=== PATIENT | male | born 1955 | race Caucasian/White ===

== ENCOUNTER 2016-11-04 11:02 | Emergency (ER) | payer BC ==
[2010-02-18 02:15] VITALS: BMI 30.1
== END 2016-11-04 12:50 | disposition home or self-care (01) ==
LOC: D.ER 11:02
DX: S93.402A Sprain of unspecified ligament of left ankle, initial encounter (principal); X58.XXXA Exposure to other specified factors, initial encounter; Y93.89 Activity, other specified; Y92.89 Other specified places as the place of occurrence of the external cause; M79.662 Pain in left lower leg; Z79.01 Long term (current) use of anticoagulants

== ENCOUNTER 2017-01-12 07:56 | Day surgery (SDC) | payer BC ==
[~2017-01-12 07:56] MED LIST: COUMADIN5 MG PO; COUMADIN7.5 MG PO; LIPITOR40 MG PO; VITAMIN D2000 UNIT PO
[2017-01-12 08:52] LABS: BASOPHILS 0.5 % (0-2); EOSINOPHILS 1.4 % (0-7); HEMATOCRIT 45.8 % (42.0-54.0); HEMOGLOBIN 15.3 g/dL (13.5-17.5); IMMATURE GRANULOCYTES 0.2 % (0-5); LYMPHOCYTES 36.3 % (15-50); MCH 30.2 pg (26.0-34.0); MCHC 33.4 g/dL (31.0-37.0); MCV 90.5 fL (80.0-100.0); MEAN PLATELET VOLUME 9.9 fL (7.4-10.4); MONOCYTES 7.2 % (2-11); NEUTROPHILS 54.4 % (40-80); RBC 5.06 10x6/uL (4.20-6.10); RDW 13.7 % (11.5-14.5); WBC 4.3 10x3/uL (4.8-10.8)
[2017-01-12 08:58] LABS: PLATELET COUNT 203 10x3/uL (130-400)
[2017-01-12 09:02] VITALS: BP 112/69; BMI 34.4
[2017-01-12 09:13] LABS: APTT 33.5 SECONDS (22.8-39.4)
[2017-01-12 09:29] LABS: ANION GAP 8.4 mmol/L (8-16); CALCIUM 9.3 mg/dL (8.5-10.1); CARBON DIOXIDE 33.7 mmol/L (21.0-32.0); CREATININE - SERUM 1.1 mg/dL (0.6-1.3); POTASSIUM - SERUM 4.1 mmol/L (3.5-5.1)
[2017-01-12 09:34] LABS: INR 1.24 (0.85-1.17); PROTIME 15.5 SECONDS (11.6-15.0)
[2017-01-12] MEDS ORDERED: HYDROCODONE-APA1 TAB PO (12:16)
--- NOTE | 2017-01-12 15:01 | NUR ---
1445--IV DC'D, PT UP TO DRESS. FRANKLIN DARNELL 5651--DISCHARGE INSTRUCTIONS GIVEN, PT VERBALIZES UNDERSTANDING. PT OFF UNIT VIA WC. FRANKLIN DARNELL
--- NOTE | 2017-01-13 13:11 | OP ---
PATIENT NAME: RHONDA NEGRON MEDICAL RECORD: [id number] :59 LOCATION:[facility] ADMISSION DATE: SURGEON: RASHEED VEE MD DATE OF OPERATION: 01/12/2017 PREOPERATIVE DIAGNOSES: 1. Lipoma of the right upper back. 2. Bilateral posterior auricular sebaceous cyst. 3. Chronic Coumadin use. 4. Gastroesophageal reflux disease. 5. Tobacco dependence syndrome. 6. Hypercholesterolemia. 7. History of deep venous thrombosis/pulmonary embolism. POSTOPERATIVE DIAGNOSES: 1. Lipoma of the right upper back. 2. Bilateral posterior auricular sebaceous cyst. 3. Chronic Coumadin use. 4. Gastroesophageal reflux disease. 5. Tobacco dependence syndrome. 6. Hypercholesterolemia. 7. History of deep venous thrombosis/pulmonary embolism. PROCEDURES: 1. Excision of 5-cm posterior right upper back lipoma. 2. Excision of bilateral 1-cm posterior auricular sebaceous cyst. SURGEON: Rasheed Vee MD REPORT OF PROCEDURE: The patient's back and posterior head and neck region were all prepped and draped in sterile fashion. A 5-cm longitudinal incision was made overlying the right upper back lipoma. This was done just medial to the scapula. Electrocautery was used to dissect through the subcutaneous tissues. We went through one layer of musculature until we encountered the patient's lipoma. The lipoma was discoid in shape and about 5 cm in greatest diameter. This was completely excised and appeared to be lying right over top of the back musculature. Once this was completely excised, it was sent off for permanent specimen. Any bleeding was then treated with electrocautery. We then irrigated out the wound thoroughly with normal saline and reapproximated the muscular tissue with interrupted 3-0 Vicryl. The Madhavi's was closed with interrupted 3-0 Vicryl and the skin was closed with running subcutaneous 5-0 Monocryl. A 10 mL of 0.25% Marcaine with epinephrine was infused into the surrounding tissues. We then approached the right posterior auricular mass. An ovoid incision was made around the mass and this was completely excised. It was noted to be a small sebaceous cyst. The subcutaneous tissues were irrigated out and treated with electrocautery. We then reapproximated the skin incision with a horizontal mattress 5-0 Monocryl. The left posterior auricular mass was approached in a similar fashion. An ovoid incision was made around the lesion, which was about 1 cm in size. The lesion was completely excised. The subcutaneous tissues were irrigated out and then infused with a total of 2 mL of 0.25% Marcaine with epi. The skin was then closed with horizontal mattress 5-0 Monocryl. The wounds were all dressed appropriately. COMPLICATIONS: None. OPERATIVE REPORT [id number] RHONDA NEGRON CONDITION: Stable. ANESTHESIA: General endotracheal and local. BLOOD LOSS: Minimal. TRANSINT:[id number] Voice Confirmation ID: [id number] DOCUMENT ID: [id number] RASHEED VEE MD at 1311 CC: DEMARCUS LAMB MD [id number] DICTATION DATE: 01/12/17 1221 [employer]: 01/12/17 1238 [facility] 01/12/17 [facility] [address] [place] [address]
== END 2017-01-12 14:55 | disposition home or self-care (01) ==
LOC: D.OPS 07:56 → D.PAN 08:30 → D.OPS 10:00 → D.PAN 10:30 → D.OPS 14:55
PROVIDERS: Surgery
DX: D17.1 Benign lipomatous neoplasm of skin and subcutaneous tissue of trunk (principal); R22.0 Localized swelling, mass and lump, head; Z79.01 Long term (current) use of anticoagulants; K21.9 Gastro-esophageal reflux disease without esophagitis; F17.200 Nicotine dependence, unspecified, uncomplicated; E78.00 Pure hypercholesterolemia, unspecified; Z86.711 Personal history of pulmonary embolism; Z01.812 Encounter for preprocedural laboratory examination